=== PATIENT | male | born 1990 | race African-American/Black ===

== ENCOUNTER 2018-04-11 14:19 | Emergency (ER) | payer BC, OTHER ==
[~2018-04-11] VITALS: Ht 167.6 cm; Wt 61.2 kg
[2018-04-11 14:52] LABS: ABSOLUTE NEUTROPHILS 4.5 thou/uL (1.4-8.2); BASOPHILS 0.3 % (0.0-2.0); EOSINOPHILS 0.2 % (0.0-3.0); HEMATOCRIT 33.1 % (42.0-52.0); HEMOGLOBIN 11.4 gm/dL (14.0-18.0); LYMPHOCYTES 12.3 % (24.0-44.0); MCHC 34.5 g/dL (28.0-37.0); MCV 81.2 fL (80.0-100.0); PLATELET COUNT 227 thou/uL (150-400); POLYS 76.2 % (36.0-66.0); RBC 4.08 mil/uL (4.50-6.00); RDW 13.1 % (10.5-14.5); WBC 5.9 thou/uL (4.0-11.0)
[2018-04-11 15:00] LABS: CALCIUM 8.7 mg/dL (8.5-10.1); CREATININE 1.3 mg/dL (0.7-1.3); POTASSIUM 3.1 mmol/L (3.5-5.1)
[2018-04-11 15:05] LABS: ALBUMIN 3.2 g/dL (3.4-5.0); DIRECT BILIRUBIN 0.1 mg/dL (<0.1-0.3); TOTAL BILIRUBIN 0.5 mg/dL (<0.1-1.0); TOTAL PROTEIN 8.5 g/dL (6.4-8.2)
[2018-04-11] MEDS ORDERED: PHENERGAN 25 MG25 M1 PO (16:15)
[2018-04-11] MEDS ORDERED: ZOFRAN ODT4 MG PO (16:15)
[2018-04-11] MEDS ORDERED: PEPCID40 MG PO (16:16)
[2018-04-11 16:52] VITALS: BP 99/62
== END 2018-04-11 16:52 | disposition home or self-care (01) ==
LOC: ER 14:19
PROVIDERS: Emergency Medicine
DX: K29.70 Gastritis, unspecified, without bleeding (principal); E87.6 Hypokalemia; R50.9 Fever, unspecified; Z21 Asymptomatic human immunodeficiency virus [HIV] infection status